=== PATIENT | male | born 1965 | race Caucasian/White ===

== ENCOUNTER 2020-01-28 00:03 | Day surgery (SDC) | payer BC, SELFPAY ==
[2020-01-22 14:54] VITALS: BMI 34.4
[2020-01-28 07:34] VITALS: BP 140/92; PULSE 91; RESP 16; TEMP 36.3; O2SAT 96
[2020-01-28] MEDS: LACTATED RINGERS 1,000 ML 150 ML IV CONT (07:42)
--- NOTE | 2020-01-28 09:12 | P.PNAN_ITS ---
Anes - Initial Pre Proc Eval Procedure: Operation Date: 01/28/20 09:00 Proposed Procedures p Screening Colonoscopy - August Macdonald MD Date/Time: 01/28/20 09:12 Surgeon: August Macdonald MD Pre Op Diagnosis: Neoplasm Screening Patient Data Age: 54 Gender: M Height: 5 ft 9 in Weight: 106.8 kg Last Vital Signs Temp 36.3 C L 01/28/20 07:34 Pulse 91 01/28/20 07:34 Resp 16 01/28/20 07:34 BP 140/92 H 01/28/20 07:34 Pulse Ox 96 01/28/20 07:34 Allergies Allergy/AdvReac Type Severity Reaction Status Date / Time iodine Allergy Unknown Difficulty Verified 01/28/20 07:30 Breathing SHELLFISH Allergy Unknown Difficulty Uncoded 01/28/20 07:30 Breathing Home Medications Medication Instructions Recorded Confirmed Type atorvastatin 10 mg PO PRN 01/22/20 01/28/20 History levothyroxine 100 mcg PO DAILY 01/22/20 01/28/20 History sumatriptan succinate 100 mg PO DAILY 01/22/20 01/28/20 History cetirizine 10 mg PO DAILY 01/28/20 01/28/20 History escitalopram oxalate 10 mg PO DAILY 01/28/20 01/28/20 History Patient hx anesthesia problems: none Family hx anesthesia problems: none [facility] Past Medical History Medical History (Updated 01/28/20 @ 09:12 by Cuate Patterson MD) Hyperlipidemia Hypothyroidism Social History Social History Gender identity (if verbalized by the patient): Male Anes - Eval Final PreProcedure Day of Procedure 01/28/20 09:12 Patient weight: overweight Heart: regular rate and rhythm Lungs: clear to auscultation Airway: Mallampati scale class II Neurological: alert and oriented Last oral intake: >/= 8 hours ASA classification: II Emergent: no Anesthetic plan: proceed Anesthesia type and monitoring: general GIVS and standard monitoring Informed Consent: The patient's anesthetic plan and its attendant risks and benefits were discussed with the patient/family/POA. Questions were solicited and answers provided to the satisfaction of the patient/family/POA.
--- NOTE | 2020-01-28 09:31 | PM.HPGS ---
History of Present Illness History of Present Illness Consent: Risks, benefits, and alternatives have been discussed and questions answered. Patient agrees to proceed with procedure. Chief complaint: Neoplasm Screening Narrative: Morgan Sandra is a 54 year old male with colon polyps about 5 years ago Review of Systems Constitutional: Constitutional: Denies headache(s) and Denies weakness Eyes: Eyes: Denies blurry vision ENT: Reports Normal hearing present, Denies headache(s) and Denies neck pain Cardiovascular: Cardiovascular: Denies chest pain and Denies dyspnea Respiratory: Respiratory: Denies dyspnea Gastrointestinal: Gastrointestinal: Reports no additional gastrointestinal complaints Genitourinary: Genitourinary: Denies dysuria Musculoskeletal: Musculoskeletal: Denies neck pain Integumentary/Breasts: Skin/Breast: Denies dry skin Neurologic: Reports Normal hearing present, Denies headache(s) and Denies weakness Psychiatric: Psychiatric: Denies anxiety Endocrine: Endocrine: Denies change in body appearance Hematologic/Lymphatic: Hematologic/Lymphatic: Denies easy bleeding Allergic/Immunologic: Allergic/Immunologic: Denies urticaria PMFSH Past Medical History Medical History (Updated 01/28/20 @ 09:31 by August Macdonald MD) Colon polyp Hyperlipidemia Hypothyroidism Social History Social History Gender identity (if verbalized by the patient): Male Meds Home Medications and Allergies Home Medications Medication Instructions Recorded Confirmed Type atorvastatin 10 mg PO PRN 01/22/20 01/28/20 History levothyroxine 100 mcg PO DAILY 01/22/20 01/28/20 History sumatriptan succinate 100 mg PO DAILY 01/22/20 01/28/20 History cetirizine 10 mg PO DAILY 01/28/20 01/28/20 History escitalopram oxalate 10 mg PO DAILY 01/28/20 01/28/20 History Allergies Allergy/AdvReac Type Severity Reaction Status Date / Time iodine Allergy Unknown Difficulty Verified 01/28/20 07:30 Breathing SHELLFISH Allergy Unknown Difficulty Uncoded 01/28/20 07:30 Breathing Vital Signs Vital Signs - 24 hr 01/28/20 07:34 Temperature 97.3 F L Pulse Rate 91 Respiratory Rate 16 Blood Pressure 140/92 H Pulse Oximetry 96 Exam Const: General: comfortable and no acute distress HENMT: General nose exam: Normal nares present Eyes: General: appearance normal, both eyes and all related structures Neck: Neck: no JVD Resp: Auscultation: clear to auscultation bilaterally Cardio: Rate: regular rate Rhythm: regular rhythm GI: Inspection: non-distended GI Palp: Yes Soft to palpation Skin: General skin exam: normal color Neuro: General: gait normal Speech: normal speech Extrem: General: normal to inspection Psych: Mental Status: mental status grossly normal Assessment and Plan Assessment and plan (1) Colon polyp: Code(s): K63.5 - Polyp of colon Status: Acute Assessment and Plan: will proceed with colonoscopy (2) Hyperlipidemia: Code(s): E78.5 - Hyperlipidemia, unspecified Status: Acute
[2020-01-28 09:55] VITALS: BP 105/58; PULSE 82; RESP 19; O2SAT 98
[2020-01-28 10:05] VITALS: BP 109/72; PULSE 71; RESP 17; O2SAT 99
[2020-01-28 10:15] VITALS: BP 118/64; PULSE 73; RESP 16; O2SAT 99
== END 2020-01-28 10:24 | disposition home or self-care (01) ==
PROVIDERS: PCP Family Medicine Sports Medicine; Visit Provider Internal Medicine Gastroenterology
PROC: 0DJD8ZZ Inspection of Lower Intestinal Tract, Via Natural or Artificial Opening Endoscopic (ICD-10-PCS; CPT 45378; principal; 2020-01-28 09:00)
DX: Z12.11 Encounter for screening for malignant neoplasm of colon (principal); K57.30 Diverticulosis of large intestine without perforation or abscess without bleeding; K64.8 Other hemorrhoids; K64.4 Residual hemorrhoidal skin tags; Z86.010 Personal history of colon polyps; E78.5 Hyperlipidemia, unspecified; E03.9 Hypothyroidism, unspecified
CPT/HCPCS: 45378; J2704; J7120

== ENCOUNTER 2020-09-19 11:17 | Emergency (ER) | payer BC, SELFPAY ==
[2020-09-19 11:32] VITALS: BP 145/83; PULSE 88; RESP 18; TEMP 35.6; O2SAT 98
--- NOTE | 2020-09-19 12:25 | ED.SKABFB ---
HPI - Skin/Abscess/Foreign Bdy General Chief complaint: Skin/Abscess/Foreign Body Stated complaint: boil on right leg Time Seen by Provider: 09/19/20 12:01 History of Present Illness HPI narrative: Painful swelling to right lower leg. began several days ago. Seen at urgent care on 09/16. Started on Bactrim. Worsening since that time. No fever or other systemic symptoms. Related Data Home Medications Medication Instructions Recorded Confirmed atorvastatin 10 mg PO PRN 01/22/20 01/28/20 levothyroxine 100 mcg PO DAILY 01/22/20 01/28/20 sumatriptan succinate 100 mg PO DAILY 01/22/20 01/28/20 cetirizine 10 mg PO DAILY 01/28/20 01/28/20 escitalopram oxalate 10 mg PO DAILY 01/28/20 01/28/20 sulfamethoxazole-trimethoprim tablet 09/19/20 09/19/20 Allergies Allergy/AdvReac Type Severity Reaction Status Date / Time iodine Allergy Unknown Difficulty Verified 09/19/20 11:41 Breathing SHELLFISH Allergy Unknown Difficulty Uncoded 09/19/20 11:36 Breathing Review of Systems Review of Systems: All systems reviewed & are unremarkable except as noted in HPI and below Constitutional: Constitutional: Denies chills, Denies fever(s) and Denies weakness ENT: Reports dizziness Cardiovascular: Cardiovascular: Denies chest pain Respiratory: Respiratory: Denies dyspnea Gastrointestinal: Gastrointestinal: Denies nausea Musculoskeletal: Musculoskeletal: Denies back pain Neurologic: Denies dizziness and Denies weakness PMFSH Past Medical History Medical History Colon polyp Hyperlipidemia Hypothyroidism Social History Social History Gender identity (if verbalized by the patient): Male Exam Const: General: healthy appearing, no acute distress and alert Orientation/consciousness: patient oriented x3 HENMT: Head: normal to inspection Neck: Neck: normal visual inspection and no lymphadenopathy Chest: Chest palpation & inspection: no tenderness Resp: Effort & Inspection: normal respiratory effort Auscultation: clear to auscultation bilaterally, no rales, no rhonchi and no wheezes Cardio: Jugular venous distension: no JVD Rate: regular rate Rhythm: regular rhythm Heart sounds: no murmurs Skin: Other: Large area of erythema and tenderness with central fluctuance over right lower leg Neuro: General: patient oriented x3 and moves all extremities Speech: normal speech Extrem: General: no edema Psych: Appearance: well kempt Affect: normal affect Course Vital Signs Vital signs: Vital Signs Temperature 35.6 C L 09/19/20 11:32 Pulse Rate 88 09/19/20 11:32 Respiratory Rate 18 09/19/20 11:32 Blood Pressure 145/83 H 09/19/20 11:32 Pulse Oximetry 98 09/19/20 11:32 Temperature 35.6 C L 09/19/20 11:32 Pulse Rate 88 09/19/20 11:32 Respiratory Rate 18 09/19/20 11:32 Blood Pressure 145/83 H 09/19/20 11:32 Pulse Oximetry 98 09/19/20 11:32 Procedures Abscess I/D lower extremity: Side (if applicable): right Local Anesthetic: lidocaine 1% and with epi Amount of anesthesia used (mL): 9 Technique: incised with #11 blade Amount of fluid expressed (mL): 3 Irrigation: Yes Packing used?: iodoform I&D Results: Pus MDM - Skin/Abscess/Foreign Bdy Differential Diagnosis Differential diagnosis: Likely abscess of skin or subcutaneous tissue and other Discharge Plan Discharge Clinical Impression: Abscess of right leg Patient Disposition: Home, Self-Care Condition: Stable Instructions: Antibiotic Form, Abscess (ED) Additional Instructions: Continue antibiotics and follow-up as planned Prescriptions: No Action atorvastatin 10 mg Tablet 10 mg PO PRN RF: 0 sumatriptan succinate 100 mg tablet 100 mg PO DAILY RF: 0 levothyroxine 100 mcg Tablet 100 mcg PO DAILY RF: 0 cetirizine 10 mg Tablet
== END 2020-09-19 14:09 | disposition home or self-care (01) ==
PROVIDERS: Emergency Provider Emergency Medicine; PCP Family Medicine Sports Medicine
DX: L02.415 Cutaneous abscess of right lower limb (principal); Z86.010 Personal history of colon polyps; E78.5 Hyperlipidemia, unspecified; E03.9 Hypothyroidism, unspecified
CPT/HCPCS: 10061; 99282